=== PATIENT | female | born 1990 | race Caucasian/White ===

== ENCOUNTER 2021-03-03 14:36 | Emergency (ER) | payer OTHER, SELFPAY ==
[2021-03-03 14:40] VITALS: BP 145/78; PULSE 96; RESP 18; TEMP 36.8; O2SAT 98
--- NOTE | 2021-03-03 14:55 | ED.GENADULT ---
HPI - General Adult General Chief complaint: Wound/Laceration Stated complaint: lt index laceration Source: patient Mode of arrival: ambulatory Limitations: no limitations History of Present Illness HPI narrative: Patient presents for evaluation of laceration to left index finger. She indicates she was cutting potatoes just prior to arrival when she cut herself accidentally with a knife. She is in moderate amount of pain in the affected area, without descriptive quality or numerical rating. No loss of range of motion. She is not diabetic. She is right-hand dominant. She was unable to control bleeding with application of pressure so came here for further evaluation. Date of last tetanus unknown. Related Data Home Medications Medication Instructions Recorded Confirmed azathioprine 50 mg PO DAILY 03/03/21 03/03/21 fluoxetine See Rx Instructions .ROUTE .COMPLEX 03/03/21 03/03/21 hydroxychloroquine 200 mg PO DAILY 03/03/21 03/03/21 prednisone 5 mg PO DAILY 03/03/21 03/03/21 Allergies Allergy/AdvReac Type Severity Reaction Status Date / Time No Known Allergies Allergy Verified 03/03/21 15:13 Review of Systems Review of Systems: CONSTITUTIONAL: Denies fever, chills, or sweats. EYES: Denies visual changes, redness, or discharge. ENT: Denies rhinorrhea, congestion, sore throat, or otalgia. CARDIOVASCULAR: Denies chest pain, palpitations, or edema. RESPIRATORY: Denies cough or dyspnea. GASTROINTESTINAL: Denies abdominal pain, nausea, vomiting, or diarrhea. GENITOURINARY: Denies dysuria or hematuria. SKIN: Reports laceration to left index finger. Denies rash or itching. MUSCULOSKELETAL: Reports pain in left index finger. Denies back pain. NEUROLOGIC: Denies headache, numbness, dizziness, or weakness. PSYCHIATRIC: Denies anxiety or depression. [facility] Past Medical History Medical History (Updated 03/03/21 @ 15:44 by Heriberto Willams, JAGUAR, PAPITO) Lupus Surgical History Surgical History No pertinent past surgical history Family History Family History Mother No pertinent past medical history Social History Social History Smoking status: Never smoker Alcohol use details: Occasional Substance use: never Living arrangements: with family Additional occupation/education comments: RN Gender identity (if verbalized by the patient): Female Sexual Orientation (if Verbalized by the Patient): Straight or Heterosexual Spiritual care concerns: No Exam Narrative: GENERAL: Well-appearing, well-nourished, and in no acute distress. HEAD: Normocephalic, atraumatic. EYES: PERRLA and EOMI. ENT: Nares clear, no rhinorrhea or epistaxis. Mucous membranes moist. Oropharynx without tonsillar hypertrophy exudate or other lesions. Bilateral TMs pearly east nonbulging NECK: Supple. No adenopathy or masses. No carotid bruits or JVD CHEST: Clear to auscultation. No respiratory distress. No wheezes rales or rhonchi HEART: Regular rate and rhythm. No murmur heard. Normal peripheral pulses. ABDOMEN: Soft, nontender, nondistended, normal active bowel sounds. EXTREMITIES: Full range of motion of all joints of the left index finger. Sensation intact. No edema. SKIN: 1 cm linear laceration in a transverse formation to the left index finger. Small amount of bleeding noted from laceration site. Skin is otherwise warm, dry, no rash. NEURO: No focal deficits. Alert and oriented x3. PSYCH: Normal mood and affect. Course Course Emergency Course: This is a 30-year-old female who presented with complaints of laceration to the left index finger. Motor and sensory function intact. She was updated on tetanus. Laceration was repaired with 3 sutures. Patient tolerated well. She should follow-up outpatient for further evaluation treatment return for wo
[2021-03-03] MEDS: TETANUS,DIPHTHERIA,AC PERTUSSIS ADULT (0.5 ML) BOOSTRIX IM (15:42)
== END 2021-03-03 16:05 | disposition home or self-care (01) ==
PROVIDERS: Emergency Provider Nurse Practitioner; PCP Internal Medicine
DX: S61.211A Laceration without foreign body of left index finger without damage to nail, initial encounter (principal); W26.0XXA Contact with knife, initial encounter; Y93.G9 Activity, other involving cooking and grilling; Z23 Encounter for immunization
CPT/HCPCS: 12001; 90471; 90715; 99202; G0463

== ENCOUNTER 2023-10-14 13:58 | Emergency (ER) | payer OTHER, SELFPAY ==
[2023-10-14 14:03] VITALS: BP 144/81; PULSE 112; RESP 18; TEMP 37.2; O2SAT 99
--- NOTE | 2023-10-14 14:07 | ED.URI ---
HPI - URI/Sore Throat General Chief Complaint: Upper Respiratory Infection Stated Complaint: strep test Time Seen by Provider: 10/14/23 14:14 Source: patient and RN notes reviewed Mode of arrival: ambulatory Limitations: no limitations History of Present Illness HPI Narrative: 33-year-old female presents with concern of for strep throat. Reports 2 day history of sore throat, general malaise. Reports cough, nasal congestion, rhinorrhea. She denies fever. She reports she has been taking Mucinex D elicited complaint: cough and sore throat Related Data Home Medications Medication Instructions Recorded Confirmed azathioprine 50 mg tablet 50 mg PO DAILY 03/03/21 10/14/23 fluoxetine 20 mg capsule See Rx Instructions .Route .COMPLEX 03/03/21 10/14/23 hydroxychloroquine 200 mg tablet 200 mg PO DAILY 03/03/21 10/14/23 prednisone 5 mg tablet 5 mg PO DAILY 03/03/21 10/14/23 Allergies Allergy/AdvReac Type Severity Reaction Status Date / Time No Known Allergies Allergy Verified 10/14/23 14:09 Review of Systems Review of Systems: CONSTITUTIONAL: Reports malaise, fatigue. Denies chills, sweats, or fever. EYES: Denies visual changes, redness, or discharge. ENT: Reports rhinorrhea, congestion, otalgia and sore throat. CARDIOVASCULAR: Denies chest pain, palpitations, or edema. RESPIRATORY: Reports cough. Denies dyspnea. GASTROINTESTINAL: Denies abdominal pain, nausea, vomiting, diarrhea SKIN: Denies rash or itching. MUSCULOSKELETAL: Denies myalgia. NEUROLOGIC: Denies headache. All systems reviewed & are unremarkable except as noted in HPI and below PMFSH Past Medical History Medical History (Updated 10/14/23 @ 14:23 by Lali Lugo NP) Lupus Surgical History Surgical History (Updated 04/08/21 @ 12:28 by Faraz Cassidy) No pertinent past surgical history Family History Family History (System 04/08/21 @ 12:28 by Faraz Cassidy) Mother No pertinent past medical history Social History Social History (System 04/08/21 @ 12:28 by Faraz Cassidy) Smoking status: Never smoker Alcohol use details: Occasional Substance use: never Living arrangements: with family Additional occupation/education comments: RN Gender identity (if verbalized by the patient): Female Sexual Orientation (if Verbalized by the Patient): Straight or Heterosexual Spiritual care concerns: No Comments At time of signature, agree with nursing past medical, surgical, social and family history. There is no relevant family history pertinent to the presenting complaint Exam Narrative: GENERAL: Nontoxic-appearing, well-nourished, and in no acute distress. HEAD: Normocephalic EYES: PERRLA, conjunctivae clear ENT: Nares clear, turbinates edematous and erythematous. Mucous membranes moist. TM pearly east with dull light reflex bilaterally; no tragal tenderness. Oropharynx not erythematous without lesions. Tonsils not enlarged and without exudate, no drooling, no hoarseness, no trismus, uvula midline. NECK: Supple. No lymphadenopathy CHEST: Clear to auscultation, breath sounds equal. No wheezing, rhonchi, rales, or stridor. No respiratory distress, speaks in full sentences. HEART: Regular rate and rhythm. No murmur heard. SKIN: Warm, dry, no rash. NEURO: Alert and oriented x3. PSYCH: Normal mood and affect Course Course Emergency Course: Patient is aware of diagnosis, understands and agrees to treatment plan. Anticipatory guidance given. Patient agrees to follow-up as directed and is aware of reasons to seek care at the emergency department. Portions of this record may have been created with voice recognition software Level of Care: Express Care Visit Vital Signs Vital signs: Reviewed. MDM - URI/Sore Throat MDM Narrative Medical decision making narrative: Differential diagnosis considered: Razo virus, strep pharyngitis, allergic rhinitis, upper respiratory tract infection, sinusitis, rhinosinusitis, nasopharyngitis. vi
== END 2023-10-14 14:26 | disposition home or self-care (01) ==
PROVIDERS: Emergency Provider Nurse Practitioner; PCP Internal Medicine
DX: J06.9 Acute upper respiratory infection, unspecified (principal)
CPT/HCPCS: 87081; 87880; 99213; G0463

== ENCOUNTER 2024-02-11 15:28 | Emergency (ER) | payer OTHER, SELFPAY ==
--- NOTE | 2024-02-11 15:39 | ECG_ITS ---
Test Date: 2024-02-11 15:42:33 Measurements Intervals [place] Rate: 74 P: 55 VT: 135 QRS: 27 QRSD: 93 T: 21 QT: 394 QTc: 439 Interpretive Statements SINUS RHYTHM POSSIBLE RIGHT VENTRICULAR CONDUCTION DELAY BORDERLINE ECG No previous ECG available for comparison Electronically Signed On 02-11-2024 16:06:47 CDT by Eugene Wang D.O.
[2024-02-11 15:42] VITALS: PULSE 74
[2024-02-11 15:45] VITALS: BP 126/59; PULSE 77; RESP 16; O2SAT 100
[2024-02-11 16:00] VITALS: BP 120/67; PULSE 74; RESP 16; O2SAT 100
[2024-02-11 16:30] VITALS: BP 118/65; PULSE 79; RESP 16; O2SAT 99
[2024-02-11 17:00] VITALS: BP 128/72; PULSE 77; RESP 16; TEMP 36.7; O2SAT 100
--- NOTE | 2024-02-11 17:38 | ED.ARRPALP ---
HPI - Arrhythmia/Palpitations General Chief Complaint: Arrhythmia/Palpitations Stated Complaint: resolved SVT Time Seen by Provider: 02/11/24 16:05 History of Present Illness HPI narrative: Patient with history of potential SVT however never confirmed presents here with with feeling funny all day. She is concerned that her heart rate is racing, that sometimes it goes up to 130s. Has seen a legal executive for this but appointment is not for a month Related Data Home Medications Medication Instructions Recorded Confirmed azathioprine 50 mg tablet 50 mg PO DAILY 03/03/21 10/14/23 fluoxetine 20 mg capsule See Rx Instructions .Route .COMPLEX 03/03/21 10/14/23 hydroxychloroquine 200 mg tablet 200 mg PO DAILY 03/03/21 10/14/23 prednisone 5 mg tablet 5 mg PO DAILY 03/03/21 10/14/23 Allergies Allergy/AdvReac Type Severity Reaction Status Date / Time No Known Allergies Allergy Verified 02/11/24 15:41 Review of Systems Review of Systems: All systems reviewed & are unremarkable except as noted in HPI and below PMFSH Past Medical History Medical History (Updated 02/11/24 @ 16:16 by Mary Ellen Quezada MD) Lupus Surgical History Surgical History (Updated 04/08/21 @ 12:28 by Faraz Cassidy) No pertinent past surgical history Family History Family History (System 04/08/21 @ 12:28 by Faraz Cassidy) Mother No pertinent past medical history Social History Social History (System 04/08/21 @ 12:28 by Faraz Cassidy) Smoking status: Never smoker Alcohol use details: Occasional Substance use: never Living arrangements: with family Additional occupation/education comments: RN Gender identity (if verbalized by the patient): Female Sexual Orientation (if Verbalized by the Patient): Straight or Heterosexual Spiritual care concerns: No Exam Narrative: EXAMINATION OF ORGAN SYSTEMS/BODY AREAS: Constitutional: Vital signs per nursing GENERAL:[No acute distress, non-toxic appearing.] HEAD: Normal with no signs of head trauma. EYES: EOMI, conjunctiva normal ENT: Hearing grossly intact LUNGS: Nonlabored breathing. HEART: [Regular rate and rhythm] ABD: No distension EXT: Normal range of motion SKIN: [No rashes or lesions.] NEURO: [Alert and oriented x 3. No gross focal sensory or strength deficits.] PSYCH: Appears slightly anxious Course Vital Signs Vital signs: Vital Signs Pulse Rate 74 09/05/24 15:42 Temperature 98.0 F 02/11/24 17:00 Pulse Rate 77 02/11/24 17:00 Respiratory Rate 16 02/11/24 17:00 Blood Pressure 128/72 02/11/24 17:00 Pulse Oximetry 100 02/11/24 17:00 MDM - Arrhythmia/Palpitations MDM Narrative Medical decision making narrative: Patient with history of anxiety and possibly SVT presenting here concerned about palpitations]. On exam patient is slightly anxious otherwise well-appearing in her distress, with normal heart rate on telemetry. Chest x-ray on my independent interpretation does not show any acute abnormality, no pneumothorax or consolidation. EKG - 12-Lead: Performed at [0100]. Interpreted by me. [Sinus rhythm]. Rate 74. [Normal] axis. GA-interval [normal]. QRS duration [normal]. QTc [normal]. [No ST segment elevation or depression]. [T-wave normal]. Impression: No EKG evidence of acute ischemia or dysrhythmia. Patient this time is requesting discharge as she feels better and her heart rate here has been normal, we unfortunately do not have Holter monitors available here but I did put in an order for outpatient Holter monitor placement and have asked her to make an appointment with them, as since happen multiple times in the past I did offer a pill in the pocket prescription which patient would like to try, she states that her doctor had discussed prescribing beta-blockers for her but has not ordered them yet. I do also have lower suspicion that for SVT at this time just given that she did not have any actual witnessed episodes and the tachyca
== END 2024-02-11 17:00 | disposition home or self-care (01) ==
PROVIDERS: Emergency Provider Emergency Medicine; PCP Physician Assistant
DX: R00.2 Palpitations (principal); M32.9 Systemic lupus erythematosus, unspecified
CPT/HCPCS: 93005; 99284